=== PATIENT | female | born 1940 | race Caucasian/White ===

== ENCOUNTER 2021-03-05 08:55 | Inpatient (IN) | payer MEDICARE, OTHER ==
[~2021-03-05] VITALS: Ht 154.9 cm; Wt 49.9 kg
[2021-03-05 11:16] LABS: HEMOGLOBIN 10.8 gm/dl (12.3-15.3); RED BLOOD COUNT 3.53 M/UL (4.00-5.10); WHITE BLOOD COUNT 8.2 K/UL (4.5-11.0)
[2021-03-05] MEDS ORDERED: JANUVIA 50 MG T50 MG PO (16:09)
[2021-03-05] MEDS ORDERED: LEVOTHYROXINE175 MCG PO (16:10)
[2021-03-05] MEDS ORDERED: ALLERGY RELIEF10 M1 PO (16:10)
[2021-03-05] MEDS ORDERED: FAMOTIDINE20 MG PO (16:10)
[2021-03-05] MEDS ORDERED: TOLTERODINE TART4 MG PO (16:11)
[2021-03-05] MEDS ORDERED: ESTRADIOL0.5 MG PO (16:21)
[2021-03-05] MEDS ORDERED: FENOFIBRATE145 MG PO (16:22)
[2021-03-05] MEDS ORDERED: GLUCOPHAGE XR500 M1 PO (16:23)
[2021-03-05] MEDS ORDERED: ALENDRONATE SOD70 MG PO (16:24)
[2021-03-05] MEDS ORDERED: CALCIUM + VITA1 EACH PO (16:26)
[2021-03-05] MEDS ORDERED: ARTHRITIS PAIN650 MG PO (17:18)
[2021-03-05] MEDS ORDERED: PRESERVISION A1 EAC1 PO (17:19)
[2021-03-06 05:03] LABS: BORDETELLA PARAPERTUSSIS Not Detected (Not Detectd); BORDETELLA PERTUSSIS Not Detected (Not Detectd); CHLAMYDIA PNEUMONIAE Not Detected (Not Detectd); CORONAVIRUS HKU1 Not Detected (Not Detectd); CORONAVIRUS NL63 Not Detected (Not Detectd); CORONAVIRUS OC43 Not Detected (Not Detectd); CORONOAVIRUS 229E Not Detected (Not Detectd); HUMAN METAPNEUMOVIRUS Not Detected (Not Detectd); INFLUENZA A Not Detected (Not Detectd); INFLUENZA B Not Detected (Not Detectd); MYCOPLASMA PNEUMONIAE Not Detected (Not Detectd); PARAINFLUENZA VIRUS 1 Not Detected (Not Detectd); PARAINFLUENZA VIRUS 2 Not Detected (Not Detectd); PARAINFLUENZA VIRUS 3 Not Detected (Not Detectd); PARAINFLUENZA VIRUS 4 Not Detected (Not Detectd); RESPIRATORY SYNCYTIAL VIRUS Not Detected (Not Detectd)
[2021-03-06 06:24] LABS: SARS-CoV-2 NOT DETECTED (Not Detectd)
[2021-03-06 06:25] LABS: HUMAN RHINOVIRUS/ENTEROVIRUS DETECTED (Not Detectd)
[2021-03-06 06:49] LABS: HEMOGLOBIN 10.3 gm/dl (12.3-15.3); RED BLOOD COUNT 3.39 M/UL (4.00-5.10)
[2021-03-06 07:01] LABS: WHITE BLOOD COUNT 5.2 K/UL (4.5-11.0)
[2021-03-07 06:30] LABS: HEMOGLOBIN 10.2 gm/dl (12.3-15.3); RED BLOOD COUNT 3.35 M/UL (4.00-5.10); WHITE BLOOD COUNT 4.6 K/UL (4.5-11.0)
--- NOTE | 2021-03-07 09:02 | NUR ---
ROOM AIR 02 SAT 93%
--- NOTE | 2021-03-07 09:46 | NUR ---
PT O2 SATS CAN GET TO 885 ON ROOM AIR
== END 2021-03-07 14:29 | disposition home or self-care (01) | DRG 196 ==
LOC: ER1 08:55 → CDU 15:50 → MED SURG 4 15:50
PROVIDERS: Nurse Practitioner; ADMIT Internal Medicine
DX: J84.112 Idiopathic pulmonary fibrosis (principal); J96.21 Acute and chronic respiratory failure with hypoxia; N17.9 Acute kidney failure, unspecified; N13.30 Unspecified hydronephrosis; B34.8 Other viral infections of unspecified site; W18.39XA Other fall on same level, initial encounter; N81.4 Uterovaginal prolapse, unspecified; Z20.822 Contact with and (suspected) exposure to COVID-19; E11.9 Type 2 diabetes mellitus without complications; E03.9 Hypothyroidism, unspecified; K21.9 Gastro-esophageal reflux disease without esophagitis; K44.9 Diaphragmatic hernia without obstruction or gangrene; M19.90 Unspecified osteoarthritis, unspecified site; E78.5 Hyperlipidemia, unspecified; E86.1 Hypovolemia; K59.09 Other constipation; M81.0 Age-related osteoporosis without current pathological fracture; Z90.710 Acquired absence of both cervix and uterus; Z98.42 Cataract extraction status, left eye; Z98.41 Cataract extraction status, right eye; Z87.891 Personal history of nicotine dependence; Z88.6 Allergy status to analgesic agent; Z82.49 Family history of ischemic heart disease and other diseases of the circulatory system; Z83.3 Family history of diabetes mellitus; Z79.4 Long term (current) use of insulin
CPT/HCPCS: 36415; 36600; 71045; 71250; 73522; 80048; 80053; 81001; 82550; 82553; 82803; 82962; 83036; 83605; 83874; 83880; 84484; 85025; 85027; 87040; 87081; 87086; 87633; 93005; 96374; 97162; 99284; J0456; J0696; J1650; J7030; U0002

== ENCOUNTER 2021-03-27 15:08 | Emergency (ER) | payer MEDICARE, OTHER ==
[~2021-03-27 15:08] MED LIST: ALENDRONATE SOD70 MG PO; ALLERGY RELIEF10 M1 PO; ARTHRITIS PAIN650 MG PO; CALCIUM + VITA1 EACH PO; ESTRADIOL0.5 MG PO; FAMOTIDINE20 MG PO; FENOFIBRATE145 MG PO; GLUCOPHAGE XR500 M1 PO; JANUVIA 50 MG T50 MG PO; LEVOTHYROXINE175 MCG PO; PRESERVISION A1 EAC1 PO; TOLTERODINE TART4 MG PO
[2021-03-27] MEDS ORDERED: DULCOLAX5 MG PO (17:25)
== END 2021-03-27 17:55 | disposition home or self-care (01) ==
LOC: ER1 15:08
DX: K62.2 Anal prolapse (principal); E11.9 Type 2 diabetes mellitus without complications; J44.9 Chronic obstructive pulmonary disease, unspecified; Z90.710 Acquired absence of both cervix and uterus
CPT/HCPCS: 99283

== ENCOUNTER 2021-03-27 19:42 | Emergency (ER) | payer MEDICARE, OTHER ==
[~2021-03-27 19:42] MED LIST changes: +DULCOLAX5 MG PO
== END 2021-03-27 20:35 | disposition home or self-care (01) ==
LOC: ER1 19:42
DX: K62.3 Rectal prolapse (principal); E11.9 Type 2 diabetes mellitus without complications
CPT/HCPCS: 99283

== ENCOUNTER 2021-03-29 11:05 | Emergency (ER) | payer MEDICARE, OTHER ==
[2021-03-29 13:04] LABS: HEMOGLOBIN 10.4 gm/dl (12.3-15.3); RED BLOOD COUNT 3.44 M/UL (4.00-5.10); WHITE BLOOD COUNT 4.9 K/UL (4.5-11.0)
[2021-03-29 13:21] LABS: BUN/CREATININE RATIO 28 (0-10)
[2021-03-29] MEDS ORDERED: ZOFRAN ODT 4 MG4 MG PO (15:36)
== END 2021-03-29 16:05 | disposition home or self-care (01) ==
LOC: ER1 11:05
PROVIDERS: Physician Assistant Medical
DX: K62.3 Rectal prolapse (principal); E11.9 Type 2 diabetes mellitus without complications; K21.9 Gastro-esophageal reflux disease without esophagitis; Z20.822 Contact with and (suspected) exposure to COVID-19; E78.5 Hyperlipidemia, unspecified; E03.9 Hypothyroidism, unspecified; Z88.5 Allergy status to narcotic agent
CPT/HCPCS: 74018; 80053; 83605; 83690; 85025; 93005; 96374; 96375; 99284; J2270; J2405; U0002

== ENCOUNTER 2021-03-30 14:32 | Emergency (ER) | payer MEDICARE, OTHER ==
[~2021-03-30 14:32] MED LIST changes: +ZOFRAN ODT 4 MG4 MG PO
== END 2021-03-30 16:15 | disposition home or self-care (01) ==
LOC: ER1 14:32
DX: K62.3 Rectal prolapse (principal); E11.9 Type 2 diabetes mellitus without complications; Z88.5 Allergy status to narcotic agent
CPT/HCPCS: 99283

== ENCOUNTER 2021-03-31 14:25 | Emergency (ER) | payer MEDICARE, OTHER | END 2021-03-31 22:52 | disposition home or self-care (01) | LOC: ER1 14:25 | DX: K62.3 Rectal prolapse (principal); E78.5 Hyperlipidemia, unspecified; E11.9 Type 2 diabetes mellitus without complications; Z90.710 Acquired absence of both cervix and uterus; Z88.5 Allergy status to narcotic agent | CPT/HCPCS: 99283 ==

== ENCOUNTER → 2021-04-08 | Outpatient (CLI) | payer MEDICARE, OTHER | LOC: HEART 5 15:26 | DX: J96.91 Respiratory failure, unspecified with hypoxia (principal); J84.10 Pulmonary fibrosis, unspecified | CPT/HCPCS: 36600; 82803; 94010 ==

== ENCOUNTER → 2021-04-08 | Outpatient (CLI) | payer MEDICARE, OTHER | LOC: RT 16:49 | DX: J84.112 Idiopathic pulmonary fibrosis (principal) | CPT/HCPCS: 36600; 82803 ==

== ENCOUNTER → 2021-08-12 | Outpatient (CLI) | payer MEDICARE, OTHER | LOC: RT 16:05 | DX: R09.02 Hypoxemia (principal) | CPT/HCPCS: 36600; 82803 ==

== ENCOUNTER → 2021-08-19 | Outpatient (CLI) | payer MEDICARE, OTHER | LOC: KOH-I 11:30 | DX: J84.112 Idiopathic pulmonary fibrosis (principal); K44.9 Diaphragmatic hernia without obstruction or gangrene | CPT/HCPCS: 71250 ==

== ENCOUNTER 2021-11-10 17:47 | Inpatient (IN) | payer MEDICARE, OTHER ==
[~2021-11-10] VITALS: Ht 154.9 cm; Wt 50.3 kg
[~2021-11-10 17:47] MED LIST changes: -JANUVIA 50 MG T50 MG PO
[2021-11-10 18:58] LABS: HEMOGLOBIN 11.3 gm/dl (12.3-15.3); RED BLOOD COUNT 4.13 M/UL (4.00-5.10)
[2021-11-11 03:24] LABS: HEMOGLOBIN 10.4 gm/dl (12.3-15.3); RED BLOOD COUNT 3.8 M/UL (4.00-5.10)
[2021-11-11 03:25] LABS: WHITE BLOOD COUNT 10.7 K/UL (4.5-11.0)
[2021-11-11] MEDS ORDERED: TOLTERODINE TART4 MG PO (09:54)
[2021-11-11] MEDS ORDERED: PEG3350510 GM PO (09:55)
[2021-11-11] MEDS ORDERED: JANUVIA 50 MG T50 MG PO (16:09)
--- NOTE | 2021-11-12 12:04 | NUR ---
PATIENT HAD LOW BLOOD PRESSURE OF 99/41, PROCIDER NOTIFIED AND ORDERED BOLUS OF 1000 ML NORMAL SALINE AT 999ML/HR. PROVIDER AWARE PATIENT HAS RESPIRATORY ISSUES. WILL CONTINUE TO MONITOR.
[2021-11-13 06:59] LABS: HEMOGLOBIN 8.3 gm/dl (12.3-15.3); RED BLOOD COUNT 3.23 M/UL (4.00-5.10); WHITE BLOOD COUNT 5.7 K/UL (4.5-11.0)
[2021-11-13 07:35] LABS: BUN/CREATININE RATIO 23 (0-10)
[2021-11-14 07:12] LABS: HEMOGLOBIN 8.3 gm/dl (12.3-15.3); RED BLOOD COUNT 3.04 M/UL (4.00-5.10); WHITE BLOOD COUNT 5.5 K/UL (4.5-11.0)
[2021-11-14 07:50] LABS: BUN/CREATININE RATIO 16 (0-10)
--- NOTE | 2021-11-14 16:22 | NUR ---
PATIENT NOTED TO HAVE INCREASED NAUSEA WHEN TURNED IN BED AND SWEATING TO ABDOMINAL AREA. MD MADE AWARE. NEW ORDERS NOTED.
[2021-11-16 05:08] LABS: HEMOGLOBIN 8.2 gm/dl (12.3-15.3); RED BLOOD COUNT 3.17 M/UL (4.00-5.10)
[2021-11-16 05:09] LABS: WHITE BLOOD COUNT 4.1 K/UL (4.5-11.0)
[2021-11-16 05:56] LABS: BUN/CREATININE RATIO 16 (0-10)
--- NOTE | 2021-11-16 08:33 | NUR ---
SPOKE WITH DALJIT WHITFIELD (FAMILY MEMBER) X2 AT 0833 AND 0820 TO UPDATE HER ON PATIENT.
[2021-11-17 06:14] LABS: RED BLOOD COUNT 3.15 M/UL (4.00-5.10); WHITE BLOOD COUNT 3.4 K/UL (4.5-11.0)
[2021-11-17 07:01] LABS: BUN/CREATININE RATIO 10 (0-10)
[2021-11-17] MEDS ORDERED: AUGMENTIN 875-1 EACH PO (12:32)
== END 2021-11-17 14:43 | disposition home or self-care (01) | DRG 871 ==
LOC: ER1 17:47 → CDU 21:02 → MED SURG 4 21:02
PROVIDERS: Internal Medicine; Physician Assistant; ADMIT Internal Medicine
DX: A41.9 Sepsis, unspecified organism (principal); J18.9 Pneumonia, unspecified organism; N30.00 Acute cystitis without hematuria; Z20.822 Contact with and (suspected) exposure to COVID-19; K80.00 Calculus of gallbladder with acute cholecystitis without obstruction; N17.9 Acute kidney failure, unspecified; C22.8 Malignant neoplasm of liver, primary, unspecified as to type; J84.112 Idiopathic pulmonary fibrosis; R65.20 Severe sepsis without septic shock; I10 Essential (primary) hypertension; E86.0 Dehydration; R53.81 Other malaise; M81.0 Age-related osteoporosis without current pathological fracture; K62.3 Rectal prolapse; E03.9 Hypothyroidism, unspecified; E78.5 Hyperlipidemia, unspecified; K21.9 Gastro-esophageal reflux disease without esophagitis; W18.30XA Fall on same level, unspecified, initial encounter; E11.9 Type 2 diabetes mellitus without complications; Z79.4 Long term (current) use of insulin; Z90.49 Acquired absence of other specified parts of digestive tract; Z98.42 Cataract extraction status, left eye; Z98.41 Cataract extraction status, right eye; Z88.6 Allergy status to analgesic agent; Z82.49 Family history of ischemic heart disease and other diseases of the circulatory system; Z83.3 Family history of diabetes mellitus; Z87.891 Personal history of nicotine dependence; Z91.81 History of falling
CPT/HCPCS: 36415; 36600; 71045; 71270; 73502; 74183; 76705; 80048; 80053; 81001; 82550; 82553; 82803; 82962; 83874; 83880; 84484; 85025; 87040; 93005; 94640; 94664; 94760; 99285; A9577; G0378; J0696; J1644; J2270; J2405; J2543; J7030; Q9967; U0002

== ENCOUNTER → 2021-12-17 | Outpatient (CLI) | payer MEDICARE, OTHER ==
[~2021-12-17] MED LIST changes: +AUGMENTIN 875-1 EACH PO; +JANUVIA 50 MG T50 MG PO; +PEG3350510 GM PO
== END | disposition home or self-care (01) ==
LOC: CT 07:30
DX: C22.7 Other specified carcinomas of liver (principal); D64.9 Anemia, unspecified; K90.9 Intestinal malabsorption, unspecified; Z88.5 Allergy status to narcotic agent; Z79.899 Other long term (current) drug therapy
CPT/HCPCS: 36415; 77012; 85049; 85610; 85730; Q9967

== ENCOUNTER 2022-06-10 12:51 | Inpatient (IN) | payer MEDICARE, OTHER ==
[~2022-06-10] VITALS: Ht 165.1 cm; Wt 43.5 kg
[~2022-06-10 12:51] MED LIST changes: +HYDROCODON-ACE1 EAC2 PO; +ONDANSETRON ODT8 MG PO
[2022-06-10 14:34] LABS: HEMOGLOBIN 12.6 gm/dl (12.3-15.3); RED BLOOD COUNT 4.01 M/UL (4.00-5.10); WHITE BLOOD COUNT 8.5 K/UL (4.5-11.0)
[2022-06-10 18:40] LABS: BUN/CREATININE RATIO 21 (0-10)
[2022-06-11 07:19] LABS: RED BLOOD COUNT 3.17 M/UL (4.00-5.10); WHITE BLOOD COUNT 3.2 K/UL (4.5-11.0)
[2022-06-11 07:40] LABS: BUN/CREATININE RATIO 22 (0-10)
[2022-06-11] MEDS ORDERED: CEFDINIR300 MG PO (10:49)
[2022-06-11] MEDS ORDERED: TRICOR 145 MG145 MG PO (10:50)
[2022-06-11] MEDS ORDERED: ONDANSETRON HCL4 MG PO (10:51)
[2022-06-11 23:25] LABS: CANDIDA ALBICANS Not Detected (Negative); CANDIDA KRUSEI Not Detected (Negative); CANDIDA TROPICALIS Not Detected (Negative); ESCHERICHIA COLI Not Detected (Negative); HAEMOPHILUS INFLUENZAE Not Detected (Negative); KLEBSIELLA OXYTOCA Not Detected (Negative); KLEBSIELLA PNEUMONIAE Not Detected (Negative); KPC-CARBAPENEM-RESISTANCE GENE Not Detected (Negative); PROTEUS Not Detected (Negative); PSEUDOMONAS AERUGINOSA Not Detected (Negative); SERRATIA MARCESANS Not Detected (Negative); STAPHYLOCOCCUS AUREUS Not Detected (Negative); STREP AGALACTIAE (GROUP B) Not Detected (Negative); STREP PYOGENES (GROUP A) Not Detected (Negative); STREPTOCOCCUS Not Detected (Negative); vanA/B (VANCOMYCIN RESIST GENE Not Detected (Negative)
[2022-06-11 23:27] LABS: STAPHYLOCOCCUS DETECTED (Negative)
[2022-06-12 07:40] LABS: HEMOGLOBIN 10.5 gm/dl (12.3-15.3); RED BLOOD COUNT 3.34 M/UL (4.00-5.10)
[2022-06-12 08:09] LABS: BUN/CREATININE RATIO 25 (0-10)
--- NOTE | 2022-06-12 16:01 | NUR ---
REPORT GIVEN TO RADHA AT 1345. PT RESTING IN BED. NAD. MONITORING.
[2022-06-13 06:53] LABS: HEMOGLOBIN 10.2 gm/dl (12.3-15.3); RED BLOOD COUNT 3.2 M/UL (4.00-5.10)
[2022-06-13 07:09] LABS: WHITE BLOOD COUNT 2.8 K/UL (4.5-11.0)
[2022-06-13 07:13] LABS: BUN/CREATININE RATIO 27 (0-10)
[2022-06-13 22:56] LABS: CAMPYLOBACTER Not Detected (Negative); ENTEROAGGREGATIVE E.COLI (EAEC Not Detected (Negative); ENTEROTOXIGENIC E.COLI (ETEC) Not Detected (Negative); PLESIOMONAS SHIGELLOIDES Not Detected (Negative); SALMONELLA Not Detected (Negative); VIBRIO Not Detected (Negative); VIBRIO CHOLERAE Not Detected (Negative); YERSINIA ENTEROCOLITICA Not Detected (Negative)
[2022-06-13 22:57] LABS: ADENOVIRUS F 40/41 Not Detected (Negative); ASTROVIRUS Not Detected (Negative); CRYPTOSPORIDIUM Not Detected (Negative); E.COLI 0157 Not Detected (Negative); ENTAMOEBA HISTOLYTICA Not Detected (Negative); GIARDIA LAMBLIA Not Detected (Negative); NOROVIRUS GI/GII Not Detected (Negative); ROTOVIRUS A Not Detected (Negative); SAPOVIRUS Not Detected (Negative); SHIG/ENTEROINVAS.ECOLI (EIEC) Not Detected (Negative); SHIGA-LIK TOX.PRO.E.COLI (STEC Not Detected (Negative)
[2022-06-14 08:20] LABS: HEMOGLOBIN 10.7 gm/dl (12.3-15.3); RED BLOOD COUNT 3.33 M/UL (4.00-5.10)
[2022-06-14 08:21] LABS: ENTEROPATHOGENIC E.COLI (EPEC) DETECTED (Negative)
[2022-06-14 08:26] LABS: WHITE BLOOD COUNT 4.2 K/UL (4.5-11.0)
[2022-06-14 08:45] LABS: BUN/CREATININE RATIO 28 (0-10)
[2022-06-15 02:59] LABS: HEMOGLOBIN 10.6 gm/dl (12.3-15.3); RED BLOOD COUNT 3.36 M/UL (4.00-5.10); WHITE BLOOD COUNT 3.6 K/UL (4.5-11.0)
[2022-06-15 03:51] LABS: BUN/CREATININE RATIO 27 (0-10)
[2022-06-16 06:12] LABS: HEMOGLOBIN 10.2 gm/dl (12.3-15.3); RED BLOOD COUNT 3.2 M/UL (4.00-5.10); WHITE BLOOD COUNT 4.2 K/UL (4.5-11.0)
[2022-06-16 06:33] LABS: BUN/CREATININE RATIO 29 (0-10)
[2022-06-17 06:34] LABS: HEMOGLOBIN 10.8 gm/dl (12.3-15.3); RED BLOOD COUNT 3.4 M/UL (4.00-5.10); WHITE BLOOD COUNT 4.1 K/UL (4.5-11.0)
[2022-06-17 07:01] LABS: BUN/CREATININE RATIO 37 (0-10)
[2022-06-17] MEDS ORDERED: VITAMIN C 500500 MG PO (14:29)
[2022-06-17] MEDS ORDERED: PROTONIX 40 MG40 M1 PO (14:29)
[2022-06-17] MEDS ORDERED: BUDESONIDE0.5 MG/2 M INH (14:29)
[2022-06-17] MEDS ORDERED: FLORANEX GRANU1 EACH PO (14:29)
[2022-06-17] MEDS ORDERED: IPRAT-ALBUT 0.5-3 ML NEB (14:29)
== END 2022-06-17 17:16 | disposition home health service (06) | DRG 177 ==
LOC: ER1 12:51 → CDU 19:21 → MED SURG 4 19:21
PROVIDERS: Family Medicine; Internal Medicine; Physician Assistant; ADMIT Internal Medicine
PROC: 8E0ZXY6 Isolation (ICD-10-PCS; principal; 2022-06-10)
PROC: XW033E5 Introduction of Remdesivir Anti-infective into Peripheral Vein, Percutaneous Approach, New Technology Group 5 (ICD-10-PCS; 2022-06-10)
PROC: 3E0333Z Introduction of Anti-inflammatory into Peripheral Vein, Percutaneous Approach (ICD-10-PCS; 2022-06-10)
DX: U07.1 COVID-19 (principal); J12.82 Pneumonia due to coronavirus disease 2019; E87.1 Hypo-osmolality and hyponatremia; F11.20 Opioid dependence, uncomplicated; N39.0 Urinary tract infection, site not specified; J96.11 Chronic respiratory failure with hypoxia; E44.0 Moderate protein-calorie malnutrition; Z68.1 Body mass index [BMI] 19.9 or less, adult; E11.9 Type 2 diabetes mellitus without complications; E03.9 Hypothyroidism, unspecified; G89.29 Other chronic pain; I10 Essential (primary) hypertension; J84.10 Pulmonary fibrosis, unspecified; R53.81 Other malaise; E88.09 Other disorders of plasma-protein metabolism, not elsewhere classified; E83.42 Hypomagnesemia; K44.9 Diaphragmatic hernia without obstruction or gangrene; D64.9 Anemia, unspecified; B96.5 Pseudomonas (aeruginosa) (mallei) (pseudomallei) as the cause of diseases classified elsewhere; Z90.89 Acquired absence of other organs; Z79.899 Other long term (current) drug therapy; Z90.710 Acquired absence of both cervix and uterus; Z88.5 Allergy status to narcotic agent
CPT/HCPCS: 36415; 71045; 80048; 80053; 81001; 82550; 82553; 82962; 83605; 83735; 84100; 84484; 85025; 85027; 87040; 87077; 87086; 87150; 87186; 87507; 93005; 94640; 94664; 94760; 96372; 96374; 96375; 97110; 97162; 97530; 97530-GP-CQ; 99285; J0248; J1100; J1650; J2405; J2543; J3475; J7030; U0002

== ENCOUNTER 2022-07-06 11:05 | Emergency (ER) | payer MEDICARE, OTHER ==
[~2022-07-06 11:05] MED LIST changes: +BUDESONIDE0.5 MG/2 M INH; +CEFDINIR300 MG PO; +FLORANEX GRANU1 EACH PO; +IPRAT-ALBUT 0.5-3 ML NEB; +ONDANSETRON HCL4 MG PO; +PROTONIX 40 MG40 M1 PO; +TRICOR 145 MG145 MG PO; +VITAMIN C 500500 MG PO
[2022-07-06 13:20] LABS: HEMOGLOBIN 10.6 gm/dl (12.3-15.3); RED BLOOD COUNT 3.26 M/UL (4.00-5.10); WHITE BLOOD COUNT 3.9 K/UL (4.5-11.0)
[2022-07-06 13:45] LABS: BUN/CREATININE RATIO 19 (0-10)
[2022-07-06] MEDS ORDERED: BACTRIM DS TAB1 EACH PO (16:25)
== END 2022-07-06 16:05 | disposition home or self-care (01) ==
LOC: ER1 11:05
PROVIDERS: Physician Assistant
DX: N30.90 Cystitis, unspecified without hematuria (principal); K60.4 Rectal fistula; E11.9 Type 2 diabetes mellitus without complications; E78.5 Hyperlipidemia, unspecified; I10 Essential (primary) hypertension; Z79.84 Long term (current) use of oral hypoglycemic drugs; Z87.891 Personal history of nicotine dependence; Z88.5 Allergy status to narcotic agent
CPT/HCPCS: 80053; 83605; 85025; 99283

== ENCOUNTER → 2022-07-23 | Outpatient (CLI) | payer MEDICARE, OTHER ==
[~2022-07-23] MED LIST changes: +BACTRIM DS TAB1 EACH PO
== END ==
LOC: CT 09:18
DX: K76.9 Liver disease, unspecified (principal); D64.9 Anemia, unspecified; K90.9 Intestinal malabsorption, unspecified; R79.1 Abnormal coagulation profile; R91.1 Solitary pulmonary nodule; C78.7 Secondary malignant neoplasm of liver and intrahepatic bile duct
CPT/HCPCS: Q9967